=== PATIENT | female | born 1990 | race Two or more races ===

== ENCOUNTER 2021-07-21 09:55 | Emergency (ER) | payer BC ==
[~2021-07-21] VITALS: Ht 144.8 cm; Wt 84.2 kg
[2021-07-21] MEDS ORDERED: HYDROcodone/APAP 5/325MG 1 TAB TABLET PO ONE (10:30)
[2021-07-21] MEDS ORDERED: IBUPROFEN 200 MG TABLET. PO ONE (10:30)
[2021-07-21] MEDS ORDERED: SMZ/TMP 800/160MG TABLET. PO ONE (10:30)
[2021-07-21] MEDS ORDERED: LIDOCAINE 1% Multi-Dose 20 ML VIAL. INJ ONE (10:30)
[2021-07-21 11:13] VITALS: BP 143/82
[2021-07-21] MEDS ORDERED: DIPHTH,PERTUSS(ACELL),TET TOX 0.5 ML DISP.SYRIN. VAX IM ONE (11:45)
[2021-07-21] MEDS ORDERED: SULF1TAB24 PO (11:48)
[2021-07-21] MEDS ORDERED: IBUP-1007 PO (11:48)
--- NOTE | 2021-07-21 11:48 | PHYS DOC ---
Past Medical History Past Medical History: No Pertinent History Past Surgical History: No Surgical History Smoking Status: Never Smoker Alcohol Use: None General Adult EDM: Chief Complaint: ABSCESS HPI: HPI: Patient is a 31 year old female presents to the emergency department complaining of an abscess to the left axilla for the past 3 days. Patient reports noticing a small bump Friday morning and has progressed to a large painful area, patient reports she tried to drain it without success. Patient reports she had a similar infection approximately 2 years ago and was started on antibiotics after it was lanced and packed, patient states she responded well to antibiotics and had no further problems until today. Patient denies taking prescription medications at home, has not taken any medications for her left axilla pain. Patient does report an allergy to penicillin. Patient reports she is on her menstrual cycle today. Patient reports a 8 out of 10 pain, denies other physical complaints or physical concerns. Patient states her last tetanus immunization was greater than 5 years ago. Review of Systems: Review of Systems: 14 body systems of review of systems have been reviewed. See HPI for pertinent positives and negative responses, otherwise all other systems are negative, nonpertinent or noncontributory. Constitutional: Negative except as outlined in HPI above. Skin: Negative except as outlined in HPI above. Eyes: Negative except as outlined in HPI above. HENT: Negative except as outlined in HPI above. Respiratory: Negative except as outlined in HPI above. Cardiovascular: Negative except as outlined in HPI above. GI: Negative except as outlined in HPI above. : Negative except as outlined in HPI above. Musculoskeletal: Negative except as outlined in HPI above. Integument: Negative except as outlined in HPI above. Neurologic: Negative except as outlined in HPI above. Endocrine: Negative except as outlined in HPI above. Lymphatic: Negative except as outlined in HPI above. Psychiatric: Negative except as outlined in HPI above. Heart Score: C/O Chest Pain: No Risk Factors: Risk Factors: DM, Current or recent (<one month) smoker, HTN, HLP, family history of CAD, obesity. Risk Scores: Score 0 - 3: 2.5% MACE over next 6 weeks - Discharge Home Score 4 - 6: 20.3% MACE over next 6 weeks - Admit for Clinical Observation Score 7 - 10: 72.7% MACE over next 6 weeks - Early Invasive Strategies Current Medications: Current Medications Medications (Trade) Dose Ordered Sig/Mojgan Start Time Stop Time Status Last Admin Dose Admin Acetaminophen/ Hydrocodone Bitart (Lortab 5/325) 1 tab 1X ONCE 07/21/21 10:30 07/21/21 11:08 DC 07/21/21 11:12 1 TAB Diphtheria/ Tetanus/Acell Pertussis (Boostrix) 0.5 ml ONCE ONCE 07/21/21 11:45 07/21/21 11:46 Ibuprofen (Motrin) 600 mg 1X ONCE 07/21/21 10:30 07/21/21 11:08 DC 07/21/21 11:11 600 MG Lidocaine HCl (Lidocaine 1% 20ml Vial) 20 ml 1X ONCE 07/21/21 10:30 07/21/21 11:08 DC 07/21/21 11:11 20 ML Trimethoprim/ Sulfamethoxazole (Bactrim Ds) 1 tab 1X ONCE 07/21/21 10:30 07/21/21 11:08 DC 07/21/21 11:12 1 TAB Allergies: Allergies: Allergies Coded Allergies Type Severity Reaction Last Updated Verified Penicillins Allergy Unknown 07/21/21 Yes Physical Exam: PE: Constitutional: Well developed, well nourished, no acute distress, non-toxic appearance. 31-year-old female in no apparent distress. HENT: Normocephalic, atraumatic. Eyes: Conjunctiva normal, no discharge. Neck: Normal range of motion, no stridor. Cardiovascular: No cyanosis appreciated, distal cap refill less than 2 seconds. Lungs & Thorax: Patient is in no respiratory distress, no audible adventitious lung sounds appreciated. Abdomen: Nontender, no abnormalities noted. Skin: Warm, dry, no erythema, no rash. Except for left axilla, fluctuant abscess with central punctum without drainage, mild erythema around abscess. Back: No tenderness, no deformities. Extremities: No tenderness, no cyanosis, no clubbing, ROM intact, no edema. Neurologic: Alert and oriented X 3, normal motor function, normal sensory function, no focal deficits noted. Psychologic: Affect normal, judgement normal, mood normal. Current Patient Data: Vital Signs: Vital Signs Date Time Temp Pulse Resp B/P (MAP) Pulse Ox O2 Delivery O2 Flow Rate FiO2 07/21/21 11:13 92 18 143/82 (102) 99 Room Air 07/21/21 10:00 97.5 97.5 EKG: EKG: [] Radiology/Procedures: Radiology/Procedures: [] Course & Med Decision Making: Course & Med Decision Making Pertinent Labs and Imaging studies reviewed. (See chart for details) 31-year-old female, vital signs reviewed, presents emerged department concerning abscess left axilla. Physical examination consistent with patient's explanation of events, see I&D note. The patient's tetanus immunization was brought up-to-date today with Tdap, patient was given p.o. pain medication prior to procedure. Patient started on Bactrim DS. Discussed home care of packed drained abscess, strict follow-up with primary care this week for reevaluation, return to ER precautions or concerns were reviewed, reviewed home antibiotic regimen, side effects reviewed, patient gave verbal understanding of and is amenable to ED discharge planning. Dragon Disclaimer: Dragon Disclaimer: This electronic medical record was generated, in whole or in part, using a voice recognition dictation system. Incision and Drainage Time: 1115 Confirmed : Patient, procedure, side, and site correct. Consent: Patient has given verbal consent for incision and drainage of abscess left axilla. Indication: Abscess of left axilla. Performed by: Garrett Servin FAST FOOD ASSISTANT RESTAURANT MANAGER-C Supervision: Dr. Hahn was available for consult regarding the critical aspects of the procedure, incision, and post procedure exam. Preprocedure exam: Circulation, motor, and sensory intact. Procedural sedation: Not indicated. Description Location: Left axilla Anesthesia: Was achieved with 3 cc 1% lidocaine without epinephrine. Preparation: Sterile field established, skin prepped with Betadine. Procedure The patient was positioned appropriately. An incision was then made over the central punctum using a #11 blade scalpel. Technique: A fluid collection was manually decompressed, wound probed, loculations decompressed . Drainage : Large amount of purulent, bloody, serosanguineous exudate expressed, abscess cavity irrigated with 250 cc normal saline, was packed with 10 cm quarter inch plain packing gauze. Post procedure exam : Circulation, motor, sensory examination intact. Patient tolerated : Well. Complications: There were no complications, culture of express exudative material obtained and sent to lab. Follow-up: Home care instructions given. Total time: 15 minutes. Departure Departure Impression: Primary Impression: Abscess of left axilla Disposition: 01 HOME / SELF CARE / HOMELESS Condition: GOOD Patient Instructions: Abscess Additional Instructions: You were seen today in the emergency department for a aphthous infection to your left axilla. This required an incision and drainage. As we discussed I placed a packing material into the abscess cavity. Please leave in place, shower daily, you may remove and shower in 2 days. Please follow-up with a primary care provider for reevaluation, please take the antibiotic as directed until co mplete. Thank you for visiting our Emergency Department. It was a pleasure taking care of you today in the emergency department and we appreciate you trusting us with your care. If any additional problems come up don't hesitate to return to visit us. Please follow up with your primary care provider so they can plan additional care if needed and know about the problem that you had. If symptoms worsen come back to the Emergency Department. Any concerning symptoms that start such as chest pain, shortness of air, weakness or numbness on one side of the body, running high fevers or any other concerning symptoms return to the ER. [facility] [address] [place] [address] [facility] [address] [place] [address] [facility] [address] [facility] [place] [address] [facility] [address] [place] [address] [facility] [address] [place] [address] [facility] [address] [place] [address] [facility] [address] [place] [address] [facility] [address] [place] [address] [facility] [address] [place] [address] [facility] [address] [place] [address] Scripts Ibuprofen (IBUPROFEN) 600 Mg Tablet 600 MG PO PRN Q6HRS PRN for INFLAMMATION, #30 TAB 0 Refills Prov: GARRETT GALVEZ APRN 07/21/21 Sulfamethoxazole/Trimethoprim (BACTRIM DS TABLET) 1 Each Tablet 1 TAB PO BID for skin infection for 10 Days, #20 TAB 0 Refills Prov: GARRETT GALVEZ APRN 07/21/21 GARRETT GALVEZ APRN Jul 21, 2021 11:48
== END 2021-07-21 12:04 | disposition home or self-care (01) ==
LOC: ER 09:55
DX: L02.412 Cutaneous abscess of left axilla (principal); Z88.0 Allergy status to penicillin
CPT/HCPCS: 10061; 87071; 87077; 90471; 90715; 99284; J3490; 10060